=== PATIENT | male | born 1990 | race Caucasian/White ===

== ENCOUNTER 2020-02-01 12:53 | Emergency (ER) | payer OTHER ==
[~2020-02-01] VITALS: Ht 172.7 cm; Wt 108.4 kg
[~2020-02-01 12:53] MED LIST: HYDACE5 PO; IBUPROFEN 800 MG
[2020-02-01] MEDS ORDERED: CYCL10 PO (14:24)
[2020-02-01] MEDS ORDERED: Norco 5-325 Ta1 EACH PO (16:25)
[2020-02-01] MEDS ORDERED: IBUP800 PO (16:25)
== END 2020-02-01 16:52 | disposition home or self-care (01) ==
LOC: ER 12:53
DX: S30.0XXA Contusion of lower back and pelvis, initial encounter (principal); V86.59XA Driver of other special all-terrain or other off-road motor vehicle injured in nontraffic accident, initial encounter; Y92.832 Beach as the place of occurrence of the external cause
CPT/HCPCS: 73502; 96372-59; 99283-25; J1885; J2270